=== PATIENT | male | born 1980 | race Asian ===

== ENCOUNTER 2019-11-06 19:32 | Inpatient (IN) | payer BC ==
[~2019-11-06] VITALS: Ht 170.2 cm; Wt 108.5 kg
[2019-11-06 20:17] LABS: BASOPHIL % 0.2 % (0-2); PLATELET COUNT 195 x10^3mcL (130-400); RED CELL DISTRIBUTION WIDTH 13.3 % (11.5-14.5)
[2019-11-06 20:23] LABS: CALCIUM 9.2 mg/dL (8.5-10.1); CARBON DIOXIDE 30.1 mmol/L (21-32); CHLORIDE SERUM 101 mmol/L (98-107); CREATININE SERUM 1.3 mg/dL (0.7-1.3); GFR1 > 60 mL/min; GLUCOSE SERUM 147 mg/dL (74-106); POTASSIUM SERUM 4.1 mmol/L (3.5-5.1); SODIUM SERUM 140 mmol/L (136-145)
[2019-11-06 20:28] LABS: ALBUMIN 3.8 g/dL (3.4-5.0); ALKALINE PHOSPHATASE 59 U/L (46-116); ALT/SGPT 40 U/L (16-63); AST/SGOT 24 U/L (15-37); BILIRUBIN TOTAL 0.92 mg/dL (0.20-1.00); LIPASE 101 IU/L (73-393); TOTAL PROTEIN, SERUM 7.8 g/dL (6.4-8.2)
[2019-11-06 20:51] LABS: microscopic required? NO
[2019-11-06 21:01] LABS: UA SPECIFIC GRAVITY 1.025 (1.005-1.035); urine erythrocyte NEGATIVE (NEGATIVE)
[2019-11-07 01:20] VITALS: BP 103/56
[2019-11-07 01:23] VITALS: Ht 170.2 cm; Wt 108.5 kg
[2019-11-07 05:47] VITALS: BP 94/51
[2019-11-07 06:38] LABS: PLATELET COUNT 176 x10^3mcL (130-400); RED CELL DISTRIBUTION WIDTH 13.3 % (11.5-14.5)
[2019-11-07 07:00] LABS: CALCIUM 8.6 mg/dL (8.5-10.1); CARBON DIOXIDE 27.2 mmol/L (21-32); CHLORIDE SERUM 104 mmol/L (98-107); CREATININE SERUM 1.4 mg/dL (0.7-1.3); GFR1 > 60 mL/min; GLUCOSE SERUM 143 mg/dL (74-106); MAGNESIUM 1.8 mg/dL (1.8-2.4); PHOSPHOROUS 3.6 mg/dL (2.5-4.9); POTASSIUM SERUM 4.4 mmol/L (3.5-5.1); SODIUM SERUM 141 mmol/L (136-145)
[2019-11-07 07:13] LABS: BASOPHIL % 0 % (0-2)
[2019-11-07 08:09] VITALS: BP 99/54
[2019-11-07 12:03] VITALS: BP 103/60
[2019-11-07 16:52] VITALS: BP 110/65
[2019-11-07 19:16] LABS: AMPHETAMINE QUAL UR NONE DETECTED (See below)
[2019-11-07 20:48] VITALS: BP 110/68
[2019-11-08 05:20] VITALS: BP 119/84
[2019-11-08 06:42] LABS: BASOPHIL % 0.3 % (0-2); PLATELET COUNT 172 x10^3mcL (130-400); RED CELL DISTRIBUTION WIDTH 13.8 % (11.5-14.5)
[2019-11-08 07:18] LABS: CALCIUM 8.3 mg/dL (8.5-10.1); CARBON DIOXIDE 28.6 mmol/L (21-32); CHLORIDE SERUM 108 mmol/L (98-107); CREATININE SERUM 1.4 mg/dL (0.7-1.3); GFR1 > 60 mL/min; GLUCOSE SERUM 88 mg/dL (74-106); MAGNESIUM 1.9 mg/dL (1.8-2.4); PHOSPHOROUS 2.6 mg/dL (2.5-4.9); POTASSIUM SERUM 4.3 mmol/L (3.5-5.1); SODIUM SERUM 144 mmol/L (136-145)
[2019-11-08 09:22] VITALS: BP 123/88
[2019-11-08] MEDS ORDERED: APAP/HYDROCODON1 T13 PO (10:19)
[2019-11-08] MEDS ORDERED: CIPRO500 MG PO (10:34)
[2019-11-08] MEDS ORDERED: FLA500 PO (10:34)
[2019-11-08 10:44] VITALS: BP 123/88
[2019-11-08 13:32] VITALS: BP 125/79
== END 2019-11-08 14:34 | disposition home or self-care (01) | DRG 853 ==
LOC: ED 19:32 → DU 21:38 → MU 21:38 → DU 11-07 01:03 → MU 11-07 12:40
PROVIDERS: Emergency Medicine; ADMIT Student in an Organized Health Care Education/Training Program
PROC: 0DTJ4ZZ Resection of Appendix, Percutaneous Endoscopic Approach (ICD-10-PCS; principal; 2019-11-08)
DX: A41.9 Sepsis, unspecified organism (principal); N17.0 Acute kidney failure with tubular necrosis; R65.20 Severe sepsis without septic shock; K35.80 Unspecified acute appendicitis; E66.9 Obesity, unspecified; Z68.37 Body mass index [BMI] 37.0-37.9, adult
CPT/HCPCS: 94150; G0378; J0694; J2175; J2250; J2270; J2405; J2543; J3010; J3490; J7030; Q9967